=== PATIENT | male | born 1985 | race Caucasian/White ===

== ENCOUNTER 2020-05-08 09:29 | Emergency (ER) | payer MEDICAID ==
[~2020-05-08] VITALS: Ht 170.2 cm; Wt 75.4 kg
[2020-05-08 09:38] VITALS: BP 135/85
[2020-05-08] MEDS ORDERED: KETOROLAC 30 MG/1 ML IM ONE (10:30)
[2020-05-08] MEDS ORDERED: KETOROLAC 30 MG/1 ML ONE (10:45)
== END 2020-05-08 11:34 | disposition home or self-care (01) ==
LOC: ED 10:50
DX: M79.662 Pain in left lower leg (principal)
CPT/HCPCS: 73590; 96372; 99283; J1885

== ENCOUNTER 2020-10-26 19:56 | Inpatient (IN) | payer MEDICAID, OTHER ==
[~2020-10-26] VITALS: Ht 182.9 cm; Wt 71.0 kg
[2020-10-26] MEDS ORDERED: DIPH,PERTUSS(ACELL),TET VAC/PF 0.5 ML IM-VACC ONE ×2 (20:00→21:48)
--- NOTE | 2020-10-26 20:12 | NUR ---
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 PT C/O OF LEFT ELBOW PAIN. ATTEMPTING TO RECEIEVE STORY FROM PT BUT CRYACOM IS LOADING AND TAKING A WHILE. PT OFF UNIT IN IMAGING. WILL ATEMPT TO GATHER INFO WHEN PT IS BACK PT IN NAD. BREATHING EVEN AND UNLABORED. WCTM
--- NOTE | 2020-10-26 20:30 | NUR ---
USED [employer] [id number]. [employer] HAD DIFFICULTY WITH TRANSLATION BECAUSE OF PT BEING IN HANDCUFFS. PT STATES HE HAS HAD INFECTION FOR LAST 5 DAYS. LEFT ELBOW APPEARS RED AND SWOLLEN AND PAINFUL.
[2020-10-26 21:01] LABS: BASOPHILS % (AUTO) 0 % (0-1); EOSINOPHILS % (AUTO) 0 % (1-7); LYMPHOCYTES % (AUTO) 8 % (22-44); MEAN CORPUSCULAR HEMOGLOBIN 30.9 pg (27.5-34.5); MEAN CORPUSCULAR HGB CONC 34.3 g/dL (33.2-36.2); MEAN PLATELET VOLUME 9.8 fL (7.4-10.4); MONOCYTES % (AUTO) 7 % (2-9); NEUTROPHILS % (AUTO) 85 % (42-75); PLATELET COUNT 167 x10^3/uL (130-400); RED BLOOD COUNT 4.83 x10^6/uL (4.38-5.82); RED CELL DISTRIBUTION WIDTH 12.9 % (9.4-14.8)
[2020-10-26 21:12] LABS: ALBUMIN 2.7 g/dL (3.4-5.0); ANION GAP 6 mmol/L (5-15); CHLORIDE 102 mmol/L (98-107)
[2020-10-26 21:14] LABS: CREATININE 0.69 mg/dL (0.7-1.3)
[2020-10-26] MEDS ORDERED: MORPHINE SULFATE 4 MG/ML, 1ML IVPush PRN (21:30)
[2020-10-26] MEDS ORDERED: LIDOCAINE 1%, 10ML INFIL ONE (21:30)
[2020-10-26] MEDS ORDERED: SODIUM CHLORIDE FLUSH 10ML SYR IVF ONE (21:30)
[2020-10-26] MEDS ORDERED: ONDANSETRON 2MG/ML, 2ML IVPush ONE (21:30)
[2020-10-26] MEDS ORDERED: SODIUM CHLORIDE 0.9% 1,000ML IVBOLUS ONE (21:30)
[2020-10-26] MEDS ORDERED: MORPHINE SULFATE 4 MG/ML, 1ML ONE (21:47)
[2020-10-26] MEDS ORDERED: ONDANSETRON 2MG/ML, 2ML ONE (21:47)
[2020-10-26] MEDS ORDERED: PLEASE ENTER HEIGHT MC SCH (22:00)
--- NOTE | 2020-10-26 22:05 | NUR ---
CURRENTLY IN ROOM WITH GINA AND KONSTANTIN PERFORMING ARTHROCENTESIS. SKILLED NURSING GAURD AT BEDSIDE WELL. PT APPEARS TO BE TOLERATING PROCEDURE WELL WITH PAIN MANAGED.
[2020-10-26] MEDS ORDERED: VANCOMYCIN 2,000 MG in SODIUM CHLORIDE 0.9% 500 ML IV ONE (22:30)
[2020-10-26] MEDS ORDERED: HYDROmorphone 1 MG/ML, 1ML INJ IVPush PRN (22:30)
[2020-10-26] MEDS ORDERED: VANCOMYCIN PER PHARMACY MC ONE (22:30)
[2020-10-26] MEDS ORDERED: CEFEPIME 2 GM in DEXTROSE 5% 100 ML IV ONE (22:30)
[2020-10-26] MEDS ORDERED: ONDANSETRON 2MG/ML, 2ML IVPush PRN (22:30)
--- NOTE | 2020-10-26 22:31 | NUR ---
PT MOVED TO ROOM WITH STUART. PT APPEARS OMRE COMFORTABLE. ATTCHED TO MONITORS. [facility]ANTOS. RANJITH. [facility] BED IN LOW. RAILS ENGAGED. CALL LIGHT ON LAP.
[2020-10-26 22:45] LABS: HCT (SEDRATE) 43.4 % (39.2-51.8)
--- NOTE | 2020-10-26 23:01 | NUR ---
Patient is resting comfortably in bed. Bed in lowest, rails engaged, call light on lap. Vital Signs within normal limits. [facility]. SHELTER GAURD AT BEDSIDE FOR SAFETY.
--- NOTE | 2020-10-26 23:29 | NUR ---
GAVE REPORT TO JACOB RN, ROOM [phone]
[2020-10-27] MEDS ORDERED: GUAIFENESIN/DM 200-20MG, 10ML UDC PO PRN
[2020-10-27] MEDS ORDERED: ENALAPRILAT 1.25 MG/ML, 2ML IVPush PRN
[2020-10-27] MEDS ORDERED: BUTALB/APAP/CAFFEINE 50MG/325MG/40MG PO PRN
[2020-10-27] MEDS ORDERED: VANCOMYCIN PER PHARMACY MC PRN
[2020-10-27] MEDS ORDERED: PHARMACOKINETIC MONITORING MC PRN (00:30)
[2020-10-27] MEDS: morphine SULFATE 10 MG/ML, 1ML IVPush PRN ×4 (00:36→22:02)
[2020-10-27 00:50] VITALS: BP 113/67
[2020-10-27] MEDS: LACTATED RINGERS 1,000 ML IV SCH ×2 (02:14→14:00)
[2020-10-27] MEDS: CEFEPIME 2 GM in DEXTROSE 5% 100 ML IV SCH ×3 (05:33→22:20)
[2020-10-27 05:34] LABS: BASOPHILS % (AUTO) 0 % (0-1); EOSINOPHILS % (AUTO) 0 % (1-7); LYMPHOCYTES % (AUTO) 9 % (22-44); MEAN CORPUSCULAR HEMOGLOBIN 31.1 pg (27.5-34.5); MEAN CORPUSCULAR HGB CONC 33.4 g/dL (33.2-36.2); MEAN PLATELET VOLUME 10.2 fL (7.4-10.4); MONOCYTES % (AUTO) 8 % (2-9); NEUTROPHILS % (AUTO) 82 % (42-75); PLATELET COUNT 133 x10^3/uL (130-400); RED BLOOD COUNT 4.01 x10^6/uL (4.38-5.82)
[2020-10-27 05:37] LABS: CHLORIDE 105 mmol/L (98-107)
[2020-10-27 05:45] LABS: ANION GAP 7 mmol/L (5-15); CALCIUM 7.4 mg/dL (8.5-10.1); CREATININE 0.41 mg/dL (0.7-1.3)
[2020-10-27] MEDS ORDERED: CEFEPIME 2 GM in DEXTROSE 5% 100 ML IV SCH (06:00)
[2020-10-27 07:51] VITALS: BP 110/70
[2020-10-27] MEDS: VANCOMYCIN 1,600 MG in SODIUM CHLORIDE 0.9% 250 ML IV SCH ×3 (08:17→20:39)
[2020-10-27 13:41] VITALS: BP 106/64
[2020-10-27] MEDS ORDERED: CEFAZOLIN 1,000 MG ONE (14:47)
[2020-10-27] MEDS ORDERED: PROPOFOL 10 MG/ML, 20ML ONE (14:47)
[2020-10-27] MEDS ORDERED: SUCCINYLCHOLINE 20 MG/ML, 10ML ONE (14:47)
[2020-10-27] MEDS ORDERED: ONDANSETRON 2MG/ML, 2ML ONE (14:47)
[2020-10-27] MEDS ORDERED: DEXAMETHASONE 4 MG/ML, 1ML ONE (14:47)
[2020-10-27] MEDS ORDERED: MIDAZOLAM 1 MG/ML, 2ML ONE (14:56)
[2020-10-27] MEDS ORDERED: FENTANYL PF 100 MCG/2ML ONE (15:36)
[2020-10-27] MEDS ORDERED: OXYcodone 5 MG/5 ML ORAL.SOL UDC ONE (15:36)
[2020-10-27] MEDS ORDERED: OXYcodone 5 MG/5 ML ORAL.SOL UDC PO PRN (16:00)
[2020-10-27] MEDS ORDERED: hydrALAzine 20 MG/ML, 1ML IV PRN (16:00)
[2020-10-27] MEDS ORDERED: SODIUM PHOSPHATE 10 MMOL in SODIUM CHLORIDE 0.9% 500 ML IV ONE ×2 (16:00→22:30)
[2020-10-27] MEDS ORDERED: FENTANYL PF 100 MCG/2ML IV PRN (16:00)
[2020-10-27] MEDS ORDERED: LABETALOL 5MG/ML, 20ML IV PRN (16:00)
[2020-10-27] MEDS ORDERED: ONDANSETRON 2MG/ML, 2ML IVPush PRN ×2 (16:00)
[2020-10-27] MEDS ORDERED: MEPERIDINE/PF 25MG/0.5ML IVPush PRN (16:00)
[2020-10-27] MEDS ORDERED: MORPHINE SULFATE 4 MG/ML, 1ML IVPush PRN (18:57)
[2020-10-27] MEDS: OXYcodone IR 5MG TABLET PO PRN (20:30)
[2020-10-27 21:32] VITALS: BP 114/63
[2020-10-28 00:43] VITALS: BP 101/62
[2020-10-28] MEDS: ZOLPIDEM 5MG TABLET PO PRN ×2 (00:56→23:21)
[2020-10-28] MEDS: OXYcodone IR 5MG TABLET PO PRN ×6 (00:57→23:21)
[2020-10-28 04:52] VITALS: BP 99/60
[2020-10-28] MEDS: VANCOMYCIN 1,600 MG in SODIUM CHLORIDE 0.9% 250 ML IV SCH ×2 (05:23→13:02)
[2020-10-28] MEDS: LACTATED RINGERS 1,000 ML IV SCH (05:23)
[2020-10-28 05:50] LABS: BASOPHILS % (AUTO) 1 % (0-1); EOSINOPHILS % (AUTO) 1 % (1-7); LYMPHOCYTES % (AUTO) 14 % (22-44); MEAN CORPUSCULAR HEMOGLOBIN 30.9 pg (27.5-34.5); MEAN CORPUSCULAR HGB CONC 34.1 g/dL (33.2-36.2); MEAN PLATELET VOLUME 10.9 fL (7.4-10.4); MONOCYTES % (AUTO) 7 % (2-9); NEUTROPHILS % (AUTO) 78 % (42-75); PLATELET COUNT 166 x10^3/uL (130-400); RED BLOOD COUNT 4.11 x10^6/uL (4.38-5.82)
[2020-10-28 05:54] LABS: CALCIUM 8.2 mg/dL (8.5-10.1); CHLORIDE 104 mmol/L (98-107)
[2020-10-28 05:59] LABS: ALANINE AMINOTRANSFERASE 84 U/L (12-78); ALKALINE PHOSPHATASE 93 U/L (45-117); ANION GAP 6 mmol/L (5-15); BILIRUBIN,TOTAL 0.3 mg/dL (0.2-1.0); CREATININE 0.48 mg/dL (0.7-1.3); TOTAL PROTEIN 5.3 g/dL (6.4-8.2)
[2020-10-28 07:29] VITALS: BP 110/63
[2020-10-28] MEDS: CEFEPIME 2 GM in DEXTROSE 5% 100 ML IV SCH (07:51)
[2020-10-28 14:04] VITALS: BP 100/56
[2020-10-28] MEDS: ENOXAPARIN 40 MG/0.4 ML SQ SCH (16:32)
[2020-10-28] MEDS: CYCLOBENZAPRINE 10 MG TABLET PO PRN (19:40)
[2020-10-28] MEDS: VANCOMYCIN 1,800 MG in SODIUM CHLORIDE 0.9% 250 ML IV SCH (21:11)
[2020-10-28 21:19] VITALS: BP 114/66
[2020-10-29] MEDS: CYCLOBENZAPRINE 10 MG TABLET PO PRN ×2 (03:27→21:08)
[2020-10-29] MEDS: OXYcodone IR 5MG TABLET PO PRN ×5 (03:27→21:08)
[2020-10-29 03:28] VITALS: BP 112/76
[2020-10-29] MEDS: VANCOMYCIN 1,800 MG in SODIUM CHLORIDE 0.9% 250 ML IV SCH (04:45)
[2020-10-29 05:18] LABS: BASOPHILS % (AUTO) 0 % (0-1); EOSINOPHILS % (AUTO) 1 % (1-7); LYMPHOCYTES % (AUTO) 18 % (22-44); MEAN CORPUSCULAR HEMOGLOBIN 31.3 pg (27.5-34.5); MEAN CORPUSCULAR HGB CONC 34.7 g/dL (33.2-36.2); MEAN PLATELET VOLUME 9.6 fL (7.4-10.4); MONOCYTES % (AUTO) 8 % (2-9); NEUTROPHILS % (AUTO) 72 % (42-75); PLATELET COUNT 205 x10^3/uL (130-400); RED BLOOD COUNT 4.04 x10^6/uL (4.38-5.82); RED CELL DISTRIBUTION WIDTH 13.1 % (9.4-14.8)
[2020-10-29 05:26] LABS: CHLORIDE 103 mmol/L (98-107)
[2020-10-29 05:32] LABS: ALANINE AMINOTRANSFERASE 67 U/L (12-78); ALKALINE PHOSPHATASE 81 U/L (45-117); ANION GAP 4 mmol/L (5-15); BILIRUBIN,TOTAL 0.3 mg/dL (0.2-1.0); CALCIUM 8.5 mg/dL (8.5-10.1); CREATININE 0.55 mg/dL (0.7-1.3); TOTAL PROTEIN 5.4 g/dL (6.4-8.2)
[2020-10-29 07:48] VITALS: BP 112/69
[2020-10-29] MEDS: CEFTRIAXONE 2 GM in DEXTROSE 5% 50 ML IVPB SCH (13:03)
[2020-10-29 13:28] VITALS: BP 116/66
[2020-10-29] MEDS: ENOXAPARIN 40 MG/0.4 ML SQ SCH (16:57)
[2020-10-29 19:59] VITALS: BP 123/66
[2020-10-30] MEDS: OXYcodone IR 5MG TABLET PO PRN ×5 (01:59→22:14)
[2020-10-30] MEDS: ACETAMINOPHEN 325 MG TABLET PO PRN ×2 (01:59→19:55)
[2020-10-30 02:00] VITALS: BP 116/67
[2020-10-30] MEDS: CYCLOBENZAPRINE 10 MG TABLET PO PRN ×2 (05:54→19:55)
[2020-10-30 05:56] LABS: ALANINE AMINOTRANSFERASE 61 U/L (12-78); ANION GAP 4 mmol/L (5-15); CALCIUM 8.4 mg/dL (8.5-10.1); CHLORIDE 104 mmol/L (98-107); CREATININE 0.53 mg/dL (0.7-1.3)
[2020-10-30 05:56] LABS: BASOPHILS % (AUTO) 1 % (0-1); EOSINOPHILS % (AUTO) 3 % (1-7); LYMPHOCYTES % (AUTO) 23 % (22-44); MEAN CORPUSCULAR HEMOGLOBIN 30.8 pg (27.5-34.5); MONOCYTES % (AUTO) 9 % (2-9); NEUTROPHILS % (AUTO) 64 % (42-75); PLATELET COUNT 259 x10^3/uL (130-400); RED BLOOD COUNT 4.67 x10^6/uL (4.38-5.82); RED CELL DISTRIBUTION WIDTH 13.3 % (9.4-14.8)
[2020-10-30 05:59] LABS: ALKALINE PHOSPHATASE 84 U/L (45-117); BILIRUBIN,TOTAL 0.2 mg/dL (0.2-1.0)
[2020-10-30 07:11] VITALS: BP 108/65
[2020-10-30] MEDS: CEFTRIAXONE 2 GM in DEXTROSE 5% 50 ML IVPB SCH (13:19)
[2020-10-30 13:28] VITALS: BP 116/71
[2020-10-30] MEDS: ENOXAPARIN 40 MG/0.4 ML SQ SCH (17:14)
[2020-10-30 19:02] VITALS: BP 116/55
[2020-10-31] MEDS: OXYcodone IR 5MG TABLET PO PRN ×3 (02:35→22:29)
[2020-10-31 02:41] VITALS: BP 111/64
[2020-10-31 06:29] VITALS: BP 113/72
[2020-10-31] MEDS: DOCUSATE 100 MG CAPSULE PO PRN (08:54)
[2020-10-31 12:02] VITALS: BP 111/81
[2020-10-31] MEDS: CEFTRIAXONE 2 GM in DEXTROSE 5% 50 ML IVPB SCH (13:13)
[2020-10-31] MEDS: ENOXAPARIN 40 MG/0.4 ML SQ SCH (17:12)
[2020-10-31 19:09] VITALS: BP 117/69
[2020-11-01 00:40] VITALS: BP 121/81
[2020-11-01 03:51] LABS: MEAN CORPUSCULAR HGB CONC 34.4 g/dL (33.2-36.2); MEAN PLATELET VOLUME 8.4 fL (7.4-10.4); PLATELET COUNT 353 x10^3/uL (130-400); RED BLOOD COUNT 4.98 x10^6/uL (4.38-5.82); RED CELL DISTRIBUTION WIDTH 12.9 % (9.4-14.8)
[2020-11-01 04:00] LABS: ANION GAP 7 mmol/L (5-15); CALCIUM 8.8 mg/dL (8.5-10.1); CHLORIDE 102 mmol/L (98-107); CREATININE 0.67 mg/dL (0.7-1.3)
[2020-11-01 04:29] LABS: <PLATELET ESTIMATE> ADEQUATE; <PLT MORPHOLOGY> NORMAL PLT MORPH; <RBC MORPHOLOGY> NORMAL; BANDS%(MANUAL) 4 % (0-7); BASOS#(MANUAL) 0.15 x10^3/uL (0-0.1); BASOS% (MANUAL) 2 % (0-1); EOS#(MANUAL) 0.15 x10^3/uL (0.0-0.4); EOS% (MANUAL) 2 % (1-7); LYMPH#(MANUAL) 1.92 x10^3/uL (1-3.4); LYMPHS% (MANUAL) 26 % (22-44); METAMYELOCYTES# (MANUAL) 0.22 x10^3/uL (0-0); METAMYELOCYTES% (MANUAL) 3 % (0-1); MONOS#(MANUAL) 0.52 x10^3/uL (0.3-2.7); MONOS% (MANUAL) 7 % (2-9); MYELOCYTES# (MANUAL) 0.07 x10^3/uL (0-0); MYELOCYTES% (MANUAL) 1 % (0-0); SEG#(MANUAL) 4.07 x10^3/uL (1.8-6.8); SEGS% (MANUAL) 55 % (42-75)
[2020-11-01 07:20] VITALS: BP 129/76
[2020-11-01] MEDS: DOCUSATE 100 MG CAPSULE PO PRN (08:51)
[2020-11-01] MEDS: OXYcodone IR 5MG TABLET PO PRN (08:52)
[2020-11-01] MEDS: ACETAMINOPHEN 325 MG TABLET PO PRN (08:53)
[2020-11-01] MEDS: CEFTRIAXONE 2 GM in DEXTROSE 5% 50 ML IVPB SCH (12:57)
[2020-11-01 13:39] VITALS: BP 110/64
[2020-11-01] MEDS: ENOXAPARIN 40 MG/0.4 ML SQ SCH (17:36)
[2020-11-01 18:35] VITALS: BP 125/76
[2020-11-02 01:07] VITALS: BP 125/67
[2020-11-02 07:20] VITALS: BP 122/67
[2020-11-02] MEDS: OXYcodone IR 5MG TABLET PO PRN (09:21)
[2020-11-02] MEDS: CEFTRIAXONE 2 GM in DEXTROSE 5% 50 ML IVPB SCH (13:39)
[2020-11-02 13:42] VITALS: BP 124/71
[2020-11-02] MEDS: ENOXAPARIN 40 MG/0.4 ML SQ SCH (16:24)
[2020-11-02 19:41] VITALS: BP 118/80
[2020-11-02] MEDS ORDERED: KETOCONAZOLE CRM 2%, 15GM TP SCH (21:00)
== END 2020-11-02 20:00 | DRG 854 ==
LOC: ED 20:03 → EDIP 23:30 → 4NE 10-27 00:03
PROVIDERS: ADMIT Internal Medicine; ATTEND Internal Medicine
PROC: 0MB40ZZ Excision of Left Elbow Bursa and Ligament, Open Approach (ICD-10-PCS; 2020-10-27)
PROC: 02HV33Z Insertion of Infusion Device into Superior Vena Cava, Percutaneous Approach (ICD-10-PCS; principal; 2020-10-31)
PROC: B5181ZA Fluoroscopy of Superior Vena Cava using Low Osmolar Contrast, Guidance (ICD-10-PCS; 2020-10-31)
PROC: B548ZZA Ultrasonography of Superior Vena Cava, Guidance (ICD-10-PCS; 2020-10-31)
DX: A41.9 Sepsis, unspecified organism (principal); E87.1 Hypo-osmolality and hyponatremia; L03.114 Cellulitis of left upper limb; M00.9 Pyogenic arthritis, unspecified; B19.20 Unspecified viral hepatitis C without hepatic coma; B35.1 Tinea unguium; B35.3 Tinea pedis; G43.909 Migraine, unspecified, not intractable, without status migrainosus; H90.5 Unspecified sensorineural hearing loss; Z20.822 Contact with and (suspected) exposure to COVID-19; M19.022 Primary osteoarthritis, left elbow; M71.122 Other infective bursitis, left elbow; Z87.891 Personal history of nicotine dependence
CPT/HCPCS: 36415; 36573; 76705; 80048; 80053; 80074; 80202; 82040; 83036; 83605; 83735; 84100; 85025; 85651; 86140; 87040; 87070; 87075; 87102; 87147; 87176; 87181; 87205; 87521; 87635; 90715; 96374; 96375; 99285; C1729; G0378; J0690; J0696; J1100; J1650; J2250; J2405; J2704; J3010; J3370; J0330; J2270; J7030; J7040; J7050; J7120